=== PATIENT | female | born 1990 | race Caucasian/White ===

== ENCOUNTER 2020-09-16 14:00 | Emergency (ER) | payer SELFPAY ==
[2020-09-16 16:40] LABS: SARS-CoV-2 NAA Rapid Test Not Detected (NotDetected)
[2020-09-16] MEDS ORDERED: diphenhydrAMINE 50 MG/ML VIAL ONE (16:50)
[2020-09-16] MEDS ORDERED: Ketorolac Tromethamine 30 MG/ML VIAL ONE (16:50)
[2020-09-16] MEDS ORDERED: Metoclopramide HCl 10 MG/2 ML VIAL ONE (16:51)
[2020-09-16] MEDS ORDERED: Magnesium 2 GM/50 ML BAG (IN WATER) ONE (19:15)
[2020-09-16] MEDS ORDERED: Ketamine 50 MG/ML (10ML VIAL) ONE (20:32)
== END 2020-09-16 19:08 | disposition home or self-care (01) ==
LOC: CSHERS 14:00
DX: B34.9 Viral infection, unspecified (principal); G43.909 Migraine, unspecified, not intractable, without status migrainosus; Z20.822 Contact with and (suspected) exposure to COVID-19; M32.9 Systemic lupus erythematosus, unspecified
CPT/HCPCS: 0240U; 96365; 96366; 96368; 96375; J1200; J1885; J2765; J3475